=== PATIENT | male | born 1940 | race Caucasian/White ===

== ENCOUNTER 2018-02-07 07:58 | Outpatient (CLI) | payer MEDICARE ==
[2018-02-07 09:50] LABS: #Eosinphils 0.5 thou/uL (0.0-0.7); #Lymphocytes 1.1 thou/uL (1.20-3.40); #Monocytes 0.5 thou/uL (0.11-0.59); #Neutrophils 4.1 thou/uL (1.40-6.50); %Basophils 0.6 % (0.0-1.0); %Eosinophils 8.3 % (0.0-10.0); %Monocytes 8.4 % (0.0-10.0); %Neutrophils 64.8 % (42.0-75.0); Hemoglobin 13.5 g/dL (14.0-18.0); Mean Corpuscular HGB CONC 35.4 g/dL (32.0-36.0); Mean Corpuscular Hemoglobin 32.2 pg (27.0-31.0); Mean Corpuscular Volume 91.1 fL (78.0-98.0); Mean Platelet Volume 6.9 fL (7.4-10.4); Platelet Count 190 thou/uL (130-400); RBC Distribution Width 12.5 % (11.5-14.5); Red Blood Cell (RBC) Count 4.19 mill/uL (4.70-6.10); White Blood Cell (WBC) Count 6.3 thou/uL (4.8-10.8)
[2018-02-07 10:12] LABS: ALT (SGPT) 26 U/L (8-55); AST (SGOT) 21 U/L (5-34); Alkaline Phosphatase 79 U/L (40-150); Anion Gap 12 mmol/L (10-20); BUN (Urea Nitrogen) 19 mg/dL (8.4-25.7); Bilirubin, Total 0.9 mg/dL (0.2-1.2); Calc. Creatinine Clearance 0 mL/min (70-130); Calcium 9.8 mg/dL (7.8-10.44); Carbon Dioxide 28 mmol/L (23-31); Cardiac Risk 4.4 (Less than 4.5); Chloride 105 mmol/L (98-107); Cholesterol 124 mg/dl (< 200 Desired); Estimated GFR-MDRD 51; Globulin 2.9 g/dL (2.4-3.5); Glucose 168 mg/dL (83-110); HDL Cholesterol 28 mg/dL (>60 Neg Risk); LDL Cholesterol, Calculated 69 mg/dL; Potassium 5.5 mmol/L (3.5-5.1); Protein, Total 6.9 g/dL (5.8-8.1); Sodium 139 mmol/L (136-145); Triglycerides 137 mg/dL (Less than 150)
[2018-02-07 10:15] LABS: INR-International Normal Ratio 2.7; PTT 33.2 SEC (22.9-36.1); Prothrombin Time 28.9 SEC (12.0-14.7)
== END 2018-02-07 07:59 | disposition home or self-care (01) ==
LOC: LABBT 07:58
PROVIDERS: ATTEND Internal Medicine Cardiovascular Disease
DX: Z01.812 Encounter for preprocedural laboratory examination (principal); I35.0 Nonrheumatic aortic (valve) stenosis; I25.10 Atherosclerotic heart disease of native coronary artery without angina pectoris
CPT/HCPCS: 80053; 80061; 85025; 85610; 85730

== ENCOUNTER 2018-02-11 05:53 | Observation (INO) | payer MEDICARE ==
[2018-02-11 07:02] LABS: INR-International Normal Ratio 1.3; PTT 31.1 SEC (22.9-36.1); Prothrombin Time 16.4 SEC (12.0-14.7)
[2018-02-11 07:12] LABS: Anion Gap 9 mmol/L (10-20); BUN (Urea Nitrogen) 21 mg/dL (8.4-25.7); Calc. Creatinine Clearance 49 mL/min (70-130); Calcium 9.4 mg/dL (7.8-10.44); Carbon Dioxide 27 mmol/L (23-31); Chloride 105 mmol/L (98-107); Estimated GFR-MDRD 49; Glucose 178 mg/dL (83-110); Potassium 4.4 mmol/L (3.5-5.1); Sodium 137 mmol/L (136-145)
[2018-02-11] MEDS ORDERED: Heparin 10,000 UNITS/1 ML VIAL ONE (07:59)
[2018-02-11] MEDS ORDERED: Fentanyl 100 MCG/2 ML VIAL ONE ×2 (07:59→08:32)
[2018-02-11] MEDS ORDERED: Lidocaine 1% (PF) 30 ML VIAL ONE (07:59)
[2018-02-11] MEDS ORDERED: Midazolam HCl 2 mg/2 ml Vial ONE ×3 (07:59→08:33)
[2018-02-11] MEDS ORDERED: Protamine Sulfate 50 MG/5 ML VIAL ONE (09:26)
[2018-02-11] MEDS ORDERED: Nitroglycerin 0.4 MG TAB (25 Tab Bottle) SL PRN (09:52)
[2018-02-11] MEDS ORDERED: Acetaminophen/Codeine 30-300mg Tablet PO PRN ×2 (09:52)
[2018-02-11] MEDS ORDERED: traMADol HCl 50 MG TAB PO PRN (09:52)
[2018-02-11] MEDS ORDERED: Sodium Chloride 0.9% 200 ML IV SCH (10:00)
[2018-02-11] MEDS ORDERED: Sodium Chloride 0.9% 1,000 ML IV SCH (10:00)
[2018-02-11] MEDS ORDERED: Iopamidol 370 76% 100 ML VIAL ONE (12:52)
[2018-02-11 19:01] VITALS: BMI 24.4
[2018-02-11 20:07] LABS: INR-International Normal Ratio 1.3
[2018-02-11 20:25] LABS: Anion Gap 12 mmol/L (10-20); BUN (Urea Nitrogen) 18 mg/dL (8.4-25.7); Calc. Creatinine Clearance 55 mL/min (70-130); Calcium 9.4 mg/dL (7.8-10.44); Carbon Dioxide 26 mmol/L (23-31); Chloride 102 mmol/L (98-107); Estimated GFR-MDRD 56; Glucose 210 mg/dL (83-110); Potassium 4.5 mmol/L (3.5-5.1); Sodium 135 mmol/L (136-145)
[2018-02-11] MEDS ORDERED: Dextrose 5% in Water 1,000 ML IV PRN (20:59)
[2018-02-11] MEDS ORDERED: HumaLOG 300 UNITS/3 ML VIAL SC PRN (20:59)
[2018-02-11] MEDS ORDERED: Dextrose 50% Abboject 50 ML SYRINGE SLOW IVP PRN (20:59)
[2018-02-11] MEDS ORDERED: Metoprolol Tartrate 25 MG TAB PO SCH (21:00)
[2018-02-11] MEDS ORDERED: LISPRO SQ SCH (21:00)
[2018-02-11] MEDS ORDERED: Atorvastatin Calcium 40 MG TAB PO SCH (21:00)
[2018-02-11] MEDS ORDERED: [UNRECOGNIZED DRUG - OTHER] SQ SCH (21:00)
[2018-02-11] MEDS ORDERED: INSULIN LISPRO PROTAMIN SQ SCH (21:00)
[2018-02-11] MEDS: Metoprolol Tartrate 50 MG TAB PO SCH (21:09)
[2018-02-11] MEDS ORDERED: Diltiazem HCl 125 MG, Admixture Fee 1 EACH in Sodium Chloride 0.9% 100 ML IVPB SCH (22:30)
[2018-02-12] MEDS: Levothyroxine Sodium 88 MCG TAB PO SCH (05:24)
[2018-02-12] MEDS: HumaLOG 300 UNITS/3 ML VIAL SC PRN ×3 (05:32→17:39)
[2018-02-12 06:05] LABS: Anion Gap 13 mmol/L (10-20); BUN (Urea Nitrogen) 23 mg/dL (8.4-25.7); Calc. Creatinine Clearance 43 mL/min (70-130); Calcium 9.1 mg/dL (7.8-10.44); Carbon Dioxide 24 mmol/L (23-31); Chloride 105 mmol/L (98-107); Estimated GFR-MDRD 42; Glucose 264 mg/dL (83-110); Potassium 4.8 mmol/L (3.5-5.1); Sodium 137 mmol/L (136-145)
[2018-02-12 06:17] LABS: Digoxin 0.47 ng/mL (0.8-2.0)
[2018-02-12] MEDS: Digoxin 0.125 MG TAB PO SCH (08:25)
[2018-02-12] MEDS: Losartan 25 MG TAB PO SCH (08:26)
[2018-02-12] MEDS: Metoprolol Tartrate 50 MG TAB PO SCH ×2 (08:27→20:22)
[2018-02-12] MEDS: Ubidecarenone 50 MG CAP PO SCH (08:27)
[2018-02-12] MEDS ORDERED: Digoxin 0.25 MG TAB PO SCH (08:45)
[2018-02-12] MEDS ORDERED: Levothyroxine Sodium 25 MCG TAB PO SCH (09:00)
[2018-02-12] MEDS ORDERED: Atorvastatin Calcium 20 MG TAB PO SCH (09:00)
[2018-02-12] MEDS ORDERED: Losartan 25 MG TAB PO SCH (09:00)
[2018-02-12] MEDS ORDERED: Aspirin 81 mg Enteric Coated Tablet PO SCH (09:00)
[2018-02-12] MEDS ORDERED: Digoxin 0.125 MG TAB PO SCH (09:00)
[2018-02-12] MEDS: Atorvastatin Calcium 40 MG TAB PO SCH (09:02)
[2018-02-12] MEDS: Insulin NPH/Reg Insulin Hm 300 UNITS/3 ML VIAL SC SCH ×2 (09:03→20:22)
[2018-02-12] MEDS: Sodium Chloride 0.9% 1,000 ML IV SCH (11:13)
[2018-02-12] MEDS: Enoxaparin Sodium 80 MG/0.8 ML SYRINGE SC SCH (20:22)
--- NOTE | 2018-02-12 23:43 | CON ---
DATE OF CONSULTATION: 02/12/2018 REQUESTING PHYSICIAN: Dr. Marlon Hall. REASON FOR CONSULTATION: Management of diabetes mellitus. HISTORY OF PRESENT ILLNESS: The patient is a 78-year-old male, who is admitted to the hospital by Dr. Hall who underwent cardiac catheterization, which showed three-vessel coronary artery disease and a cardiothoracic surgeon was consulted for possible coronary artery bypass graft surgery. The patient is a diabetic who is using 14 units of insulin 70/30 twice a day and his A1c is still elevated. He noticed that his postprandial glycemia is running high, but he did not really make any changes to correct that. PAST MEDICAL HISTORY: 1. Positive for hypothyroidism. 2. History of atrial flutter, status post RTA. 3. Hypertension. 4. Diabetes mellitus. 5. Hyperlipidemia. 6. Status post pacemaker. 7. Chronic atrial fibrillation. ALLERGIES: PENICILLIN. HOME MEDICATIONS: 1. Warfarin 7 mg once a day. 2. Insulin Lispro 75/25 fourteen units twice a day. 3. Metoprolol 50 mg twice a day. 4. Atorvastatin 40 mg every morning. 5. Metformin 500 mg twice a day. 6. Levothyroxine 88 mcg every morning. 7. Losartan 50 mg once a day. 8. Digoxin 0.125 mg once a day. 9. Aspirin 81 mg once a day. 10. Coenzyme Q10 100 mg once a day. PHYSICAL EXAMINATION: VITAL SIGNS: Blood pressure is 109/61, pulse is 62, respiratory rate 21, temperature 99.0, and pulse oximeter is 96% on room air. HEENT: Head is atraumatic and normocephalic. Eyes are PERRLA. Sclerae are nonicteric. Oral mucosa is moist. NECK: Supple. LUNGS: Clear. HEART: S1 and S2 normal except for some irregularities. No S3. No S4. ABDOMEN: Soft, nontender, and nondistended. EXTREMITIES: No clubbing, cyanosis or edema. NEUROLOGICAL: Nonfocal. LABORATORY DATA: Showed glycemia ranging from 178 to 264. The last glucose on Accu-Chek was 338. Digoxin level was 0.47. His electrolytes are within normal limits. Creatinine 1.6, which is slightly higher than what it was yesterday at 1.26. IMPRESSION: 1. Severe aortic stenosis per cardiac cath. 2. Three-vessel coronary artery disease. 3. Diabetes mellitus, not controlled properly. 4. Chronic atrial fibrillation. 5. Status post pacemaker placement. 6. Chronic kidney disease. 7. Hyperlipidemia. 8. Hypothyroidism. 9. History of atrial flutter. 10. Hypertension. RECOMMENDATIONS: Regarding medical management of his diabetes, I would restart his mix of 75/25 insulin 14 units twice a day. I would treat his postprandial hyperglycemia with before meals and at bedtime short-acting insulin coverage according to the sliding scale and I would send him home on this regimen. The other option is to use Lantus or Levemir along with a preprandial short-acting insulin injection before each meal. Obviously a closer attention to his diet and some form of activity, which he can tolerate with his current medical condition. Thank you very much for the consultation and we will be following with you. Job ID: [id number]
[2018-02-13] MEDS: Levothyroxine Sodium 88 MCG TAB PO SCH (04:44)
[2018-02-13 05:08] LABS: Anion Gap 7 mmol/L (10-20); BUN (Urea Nitrogen) 20 mg/dL (8.4-25.7); Calc. Creatinine Clearance 51 mL/min (70-130); Calcium 8.6 mg/dL (7.8-10.44); Carbon Dioxide 28 mmol/L (23-31); Chloride 107 mmol/L (98-107); Estimated GFR-MDRD 51; Glucose 184 mg/dL (83-110); Potassium 4.4 mmol/L (3.5-5.1); Sodium 138 mmol/L (136-145)
[2018-02-13] MEDS: Sodium Chloride 0.9% 1,000 ML IV SCH (08:39)
[2018-02-13] MEDS: Atorvastatin Calcium 40 MG TAB PO SCH (08:40)
[2018-02-13] MEDS: Digoxin 0.125 MG TAB PO SCH (08:40)
[2018-02-13] MEDS: Insulin NPH/Reg Insulin Hm 300 UNITS/3 ML VIAL SC SCH ×2 (08:40→21:05)
[2018-02-13] MEDS: Enoxaparin Sodium 80 MG/0.8 ML SYRINGE SC SCH ×2 (08:40→21:06)
[2018-02-13] MEDS: Metoprolol Tartrate 50 MG TAB PO SCH ×2 (08:41→21:02)
[2018-02-13] MEDS: Losartan 25 MG TAB PO SCH (08:41)
[2018-02-13] MEDS: Ubidecarenone 50 MG CAP PO SCH (08:41)
[2018-02-13 08:45] LABS: Hemoglobin 11.9 g/dL (14.0-18.0); Platelet Count 172 thou/uL (130-400)
[2018-02-13] MEDS ORDERED: Digoxin 0.25 MG TAB PO SCH (08:45)
[2018-02-13] MEDS ORDERED: HumaLOG 300 UNITS/3 ML VIAL SC PRN (10:46)
[2018-02-13] MEDS ORDERED: Dextrose 5% in Water 1,000 ML IV PRN (10:46)
[2018-02-13] MEDS ORDERED: Dextrose 50% Abboject 50 ML SYRINGE SLOW IVP PRN (10:46)
--- NOTE | 2018-02-13 11:51 | PRG ---
DATE OF SERVICE: 02/13/2018 SUBJECTIVE: The patient is seen and examined at bedside. He does not have much complaints to offer except for food. He is served as diabetic. He does not think this is a diet for diabetics. He does not have any chest pain. OBJECTIVE: VITAL SIGNS: Blood pressure is 133/60, pulse is 77, respiratory rate is 18, O2 saturation 95% on room air, and his temperature is 98.4. HEENT: His head is atraumatic and normocephalic. Eyes are PERRLA. Sclerae are nonicteric. Oral mucosa is moist. NECK: Supple. LUNGS: Few crackles at both bases. No wheezing. HEART: S1 and S2, somewhat distant. No S3. No S4. There is a systolic murmur, 2 to 3/6, mostly audible in the right upper sternal border. ABDOMEN: Soft, nontender. Bowel sounds are present. No organomegaly. EXTREMITIES: No clubbing, cyanosis, or edema. NEUROLOGIC: He is alert and oriented x4. There are no any motor deficits. LABORATORY DATA: Hemoglobin of 11.9, hematocrit 34.8, and platelet count 172. Normal electrolytes. BUN 20, creatinine 1.29, glycemia is ranging from 184 to 338, calcium 8.6. Digoxin level 0.50. IMPRESSION: 1. Uncontrolled diabetes mellitus. The patient does want to make any significant changes in his regimen. He is planning to go to [place] for his surgery, if not today, maybe tomorrow. I increased his sliding scale to aggressive, but continue his 14 units of insulin Mix 75/25 twice a day and we will continue Accu-Cheks a.c. and at bedtime. 2. Severe aortic stenosis. 3. Three-vessel coronary artery disease. 4. Chronic atrial fibrillation. 5. Status post pacemaker placement. 6. Chronic kidney disease. 7. Hyperlipidemia. 8. Hypothyroidism. 9. History of atrial flutter. 10. Hypertension. PLAN: As mentioned above. He will follow up with his primary care physician or manufacturing specialist and his glycemia is going to be a stabilized better. I explained to him that one option is to use low-acting insulin Levemir or Lantus along with short-acting before each meal injections, but he is concerned about the cost of this long-acting insulin. He said that he used to be on Lantus and it was very expensive, so for now, we will keep him on his regular dose of 75/25 of 14 units twice a day plus sliding scale aggressive. Job ID: [id number]
[2018-02-13] MEDS ORDERED: Warfarin Sodium 10 MG TAB PO SCH (17:00)
[2018-02-14] MEDS: Levothyroxine Sodium 88 MCG TAB PO SCH (05:49)
[2018-02-14] MEDS: Sodium Chloride 0.9% 1,000 ML IV SCH (05:55)
[2018-02-14 06:42] LABS: Anion Gap 12 mmol/L (10-20); BUN (Urea Nitrogen) 18 mg/dL (8.4-25.7); Calc. Creatinine Clearance 49 mL/min (70-130); Carbon Dioxide 24 mmol/L (23-31); Chloride 109 mmol/L (98-107); Estimated GFR-MDRD 52; Glucose 103 mg/dL (83-110); Potassium 4.3 mmol/L (3.5-5.1); Sodium 141 mmol/L (136-145)
[2018-02-14 06:45] LABS: Digoxin 0.89 ng/mL (0.8-2.0)
[2018-02-14 08:33] VITALS: BP 117/59; TEMP 98.5
[2018-02-14] MEDS: Losartan 25 MG TAB PO SCH (09:01)
[2018-02-14] MEDS: Digoxin 0.125 MG TAB PO SCH (09:01)
[2018-02-14] MEDS: Ubidecarenone 50 MG CAP PO SCH (09:01)
[2018-02-14] MEDS: Atorvastatin Calcium 40 MG TAB PO SCH (09:01)
[2018-02-14] MEDS: Metoprolol Tartrate 50 MG TAB PO SCH (09:01)
[2018-02-14] MEDS: Insulin NPH/Reg Insulin Hm 300 UNITS/3 ML VIAL SC SCH (09:02)
[2018-02-14] MEDS: Enoxaparin Sodium 80 MG/0.8 ML SYRINGE SC SCH (09:02)
--- NOTE | 2018-02-14 11:46 | DIS ---
DATE OF ADMISSION: 02/11/2018 DATE OF DISCHARGE: 02/14/2018 DISCHARGE DIAGNOSES: 1. Severe aortic stenosis with aortic valve area of 0.66 cm2. 2. Three-vessel coronary artery disease with a 90% proximal left anterior descending stenosis that is heavily calcified. 3. Status post open mitral commissurotomy, mitral valve repair with angioplasty ring and Maze procedure in April 2008 at [facility] in [place]. 4. Chronic atrial fibrillation (he declined amiodarone, declined radiofrequency ablation, would not pay for [employer] and has a history of ventricular tachycardia with sotalol). 5. Status post pacemaker. 6. History of obtuse marginal - one stent in March 2005 with continued good results. 7. Acute kidney injury on chronic kidney disease with creatinine increasing from 1.40 to 1.60 after catheterization and 1.34 at the time of discharge after hydration. 8. Hypercholesterolemia. 9. History of atrial flutter ablation. 10. Paroxysmal atrial tachycardia on the evening of February 11, 2018 with ventricular rate of 100. Digoxin was subtherapeutic. He was given additional doses. At the time of discharge, his digoxin level was increased from 0.47 to 0.89. 11. Hypertension. 12. Diabetes. DISCHARGE MEDICATIONS: 1. Aspirin 81 daily. 2. Warfarin 7 mg q.p.m. 3. Atorvastatin 40 mg daily. 4. Digoxin 0.125 daily. 5. Humalog 14 units b.i.d. 6. Levothyroxine 25 mcg daily. 7. Losartan 25 daily. 8. Metoprolol 50 mg b.i.d. 9. Metformin 500 mg b.i.d. 10. CoQ10 of 100 mg daily. DISCHARGE DISPOSITION: The patient is going today to [facility] to see Dr. Rendon regarding possible stent of the proximal LAD and TAVR. HOSPITAL COURSE: Mr. Valenzuela has been noting increasing shortness of breath, increasing chest discomfort similar to what he had many years ago prior to his initial circumflex stent. Echo in the office revealed an ejection fraction of 50% to 55% with mitral annuloplasty ring in place, [id number] mitral regurgitation, severe aortic stenosis with peak gradient of 45 mm, mean gradient 28 mm, and aortic valve area of 1.13 cm2. He underwent cardiac PET scanning, which revealed mid to distal anterior and apical ischemia. His Coumadin was held. He underwent cardiac catheterization. This revealed a mean aortic valve gradient of 23 mm with aortic valve area of 0.66 cm2. There was mild inferobasal hypokinesis and mild anterior hypokinesis with ejection fraction of 50% to 55% with mild mitral regurgitation and an annuloplasty ring in place. Coronary arteries revealed a 90% proximal calcified LAD and 70% apical LAD. There was an 80% first diagonal as well as a 70% lesion in the mid first diagonal. The circumflex had a 50% distal stenosis. There continued to be good stent results in the first obtuse marginal. The right coronary artery was totally occluded. The patient was seen by Dr. Alvarez and he felt that input should be considered regarding stenting the LAD and TAVR. Arrangements have been made for him to see Dr. Rendon later on the day of discharge. The day after catheterization, he was started on Lovenox 1 mg/kg b.i.d. and has been restarted also on his Coumadin. Due to his increase in creatinine to 1.60, he was hydrated and creatinine at the time of discharge was 1.36. Job ID: [id number] [facility]
--- NOTE | 2018-02-14 14:55 | PDOC.PN ---
- Subjective Encounter Start Date: 02/14/18 Encounter Start Time: 09:00 Subjective: Patient doing well, heading to [facility] for TAVR procedure - Objective MAR Reviewed: Yes Vital Signs & Weight: Vital Signs (12 hours) Temp Pulse Resp BP Pulse Ox 02/14/18 09:01 90 02/14/18 07:38 98.5 F 90 20 117/59 L 95 02/14/18 04:13 98.9 F 76 20 139/74 93 L Weight Weight 162 lb 9.6 oz I&O: 02/13/18 02/14/18 02/15/18 06:59 06:59 06:59 Intake Total 1286 1240 Output Total 350 625 Balance 936 615 Result Diagrams: 02/13/18 04:41 02/14/18 05:32 Additional Labs: Accuchecks 02/14/18 02/13/18 02/13/18 05:46 21:52 17:03 POC Glucose 128 H 284 H 86 Phys Exam - Physical Examination HEENT: PERRLA, moist MMs, sclera anicteric, TM's clear, oral pharynx no lesions , 2+ tonsils Neck: no nodes, no JVD, supple, full ROM Respiratory: no wheezing, no rales, no rhonchi, clear to auscultation bilateral Cardiovascular: RRR, no rub, gallop +aortic murmur Gastrointestinal: soft, non-tender, no distention, positive bowel sounds Musculoskeletal: no edema, pulses present Neurological: non-focal, normal sensation, moves all 4 limbs Dx/Plan (1) CAD (coronary artery disease) Code(s): I25.10 - ATHSCL HEART DISEASE OF [place] CORONARY ARTERY W/O ANG PCTRS Status: Acute Qualifiers: Coronary Disease-Associated Artery/Lesion type: council artery Comment: 3 vessel disease requiring bypass. Patient is contemplating the same at [facility] (2) Aortic valve stenosis Code(s): I35.0 - NONRHEUMATIC AORTIC (VALVE) STENOSIS Status: Acute Qualifiers: Cardiac valve disease etiology: nonrheumatic Qualified Code(s): I35.0 - Nonrheumatic aortic (valve) stenosis Comment: TAVR per patient at [facility] - Plan Patient discharged by Dr. Mason for OP follow up with [facility] * .
== END 2018-02-14 09:46 | disposition home or self-care (01) ==
LOC: CCL 05:53 → 2SW 18:58
PROVIDERS: ADMIT Internal Medicine Cardiovascular Disease; ATTEND Internal Medicine Cardiovascular Disease
PROC: 4A023N7 Measurement of Cardiac Sampling and Pressure, Left Heart, Percutaneous Approach (ICD-10-PCS; principal; 2018-02-11)
PROC: B2111ZZ Fluoroscopy of Multiple Coronary Arteries using Low Osmolar Contrast (ICD-10-PCS; 2018-02-11)
DX: I25.10 Atherosclerotic heart disease of native coronary artery without angina pectoris (principal); I25.84 Coronary atherosclerosis due to calcified coronary lesion; I35.0 Nonrheumatic aortic (valve) stenosis; I34.0 Nonrheumatic mitral (valve) insufficiency; E78.5 Hyperlipidemia, unspecified; K21.9 Gastro-esophageal reflux disease without esophagitis; I48.0 Paroxysmal atrial fibrillation; E78.00 Pure hypercholesterolemia, unspecified; I25.2 Old myocardial infarction; I48.3 Typical atrial flutter; I12.9 Hypertensive chronic kidney disease with stage 1 through stage 4 chronic kidney disease, or unspecified chronic kidney disease; E11.22 Type 2 diabetes mellitus with diabetic chronic kidney disease; N18.3 Chronic kidney disease, stage 3 (moderate); N17.9 Acute kidney failure, unspecified; I48.2 Chronic atrial fibrillation; E11.65 Type 2 diabetes mellitus with hyperglycemia; Z95.0 Presence of cardiac pacemaker; Z88.0 Allergy status to penicillin; Z98.890 Other specified postprocedural states; Z95.5 Presence of coronary angioplasty implant and graft; Z79.4 Long term (current) use of insulin; Z79.82 Long term (current) use of aspirin; Z79.01 Long term (current) use of anticoagulants; Z79.899 Other long term (current) drug therapy
CPT/HCPCS: 80048 ×5; 80162 ×3; 82565; 82962 ×3; 85014; 85018; 85049; 85347; 85610 ×2; 85730; 93460; 93561; 93567; 96361 ×2; 96365; 96366 ×3; 96372 ×2; 96375; C1769; G0378 ×2; 36415; 36416; 99152; 99153; J1644; J1650; J2001; J2250; J2720; J3010; J7050

== ENCOUNTER 2020-09-15 10:20 | Outpatient (CLI) | payer MEDICARE | END 2020-09-15 10:21 | disposition home or self-care (01) | LOC: BICRAD 10:20 | PROVIDERS: ATTEND Internal Medicine Cardiovascular Disease | DX: Z48.812 Encounter for surgical aftercare following surgery on the circulatory system (principal); Z95.3 Presence of xenogenic heart valve; J90 Pleural effusion, not elsewhere classified | CPT/HCPCS: 71046 ==

== ENCOUNTER 2021-07-25 13:52 | Emergency (ER) | payer MEDICARE ==
[2021-07-25] MEDS ORDERED: EPINEPHrine 1 MG/10 ML Abboject SYRINGE ONE (13:59)
[2021-07-25] MEDS ORDERED: Sodium Bicarb 50 MEQ/50 ML Abboject 8.4% SYRINGE ONE (13:59)
[2021-07-25] MEDS ORDERED: Calcium Chloride 1 GM/10 ML Abboject SYRINGE ONE (13:59)
[2021-07-25] MEDS ORDERED: Amiodarone 150 MG/3 ML VIAL ONE (13:59)
[2021-07-25] MEDS ORDERED: Magnesium 5 GM/10 ML Abboject SYRINGE ONE (13:59)
== END 2021-07-25 14:20 | disposition expired ==
LOC: ERS 13:52
DX: I46.9 Cardiac arrest, cause unspecified (principal); J96.01 Acute respiratory failure with hypoxia; I49.01 Ventricular fibrillation; I10 Essential (primary) hypertension; E11.9 Type 2 diabetes mellitus without complications; I25.10 Atherosclerotic heart disease of native coronary artery without angina pectoris; E03.9 Hypothyroidism, unspecified; E78.5 Hyperlipidemia, unspecified; E78.00 Pure hypercholesterolemia, unspecified
CPT/HCPCS: 92950; 96374; 96375; J0171; J0282; J3475